=== PATIENT | female | born 1945 | race Caucasian/White ===

== ENCOUNTER → 2016-06-25 07:25 | Day surgery (SDC) | payer OTHER ==
[~2016-06-25 07:25] MED LIST: Acetaminophen TAB* 325 MG PO PRN; Buffered Lidocaine 1% SYRIN* 3 ML/SYR SYRINGE INTRADERM ONE; Cyclopentolate 1% OPTH.SOL* 2 ML BTL ONE; Flurbiprofen 0.03% OPTH.SOL* 2.5 ML BTL ONE; Lidocaine 1% MPF* 2 ML VIAL ONE; Lidocaine 2% EPI 1:200000 MPF* 20 ML VIAL ONE; Midazolam* 1 MG/ML 2 ML VIAL (2 MG) ONE; Neomycin/Polymy/Dex OPTH.SUSP* MAXITROL 0.1% 5 ML ONE; Phenylephrine 2.5% OPTH.SOL* 2 ML BTL ONE; Povidone Iodine 5% OPTH* 30 ML BTL ONE; Proparacaine 0.5% OPHTH.SOL* 15 ML BTL ONE; acetaZOLAMIDE TAB* 250 MG ONE
[2016-06-25 11:04] VITALS: BP 123/74
--- NOTE | 2016-06-25 22:18 | OP ---
DATE OF OPERATION: 06/25/16 - [facility] DATE OF : 47 SURGEON: Israel Bustillo MD PREOPERATIVE DIAGNOSIS: Cataract, left eye. POSTOPERATIVE DIAGNOSIS: Cataract, left eye. OPERATIVE PROCEDURE: Phacoemulsification left eye with IOL. DESCRIPTION OF PROCEDURE: The patient was brought to the operating room after being given 1/2% Alcaine with epinephrine drops in the preoperative area. The eye was prepped and draped in the usual sterile fashion. Sterile drape and eyelid speculum were placed. Again, topical 1/2% Alcaine with epinephrine was given. A paracentesis incision was made at the 3 o'clock position with the No.75 blade. Clear cornea incision 2.2 x 2.2-mm was created at the 6 o'clock position starting at the anterior limbus using the 2.2-mm keratome. The anterior chamber was irrigated with 0.4 mL of 1% non-preservative intracameral lidocaine and filled with DisCoVisc. A capsulorrhexis was completed using the cystotome and the Utrata forceps. Hydrodissection was performed with balanced salt solution. The lens nucleus was removed with the Phacoemulsification handpiece without incident. Cortex was removed with the irrigation-aspiration handpiece. The capsular bag was re-inflated using DisCoVisc and an [id number] 15 implant was inserted with the shooter. Because the pupil was small, a Malyugin ring was used to dilate the pupil prior to capsulorrhexis and removed after insertion of the lens. Indication for complex cataract surgery, iris abnormality requiring pupil dilation device. The irrigation-aspiration handpiece was used to remove all residual DisCoVisc. The eye was refilled with balanced salt solution and the wound checked and found to be watertight. Topical Maxitrol drops were given. [id number]/[facility] #: [id number] [facility]ITAL[facility]er[facility]
== END | disposition home or self-care (01) ==
LOC: OREAST 07:25
PROVIDERS: ATTEND Specialist
DX: H25.812 Combined forms of age-related cataract, left eye (principal); H21.562 Pupillary abnormality, left eye; H16.223 Keratoconjunctivitis sicca, not specified as Sjogren's, bilateral; N95.1 Menopausal and female climacteric states; I10 Essential (primary) hypertension; J44.9 Chronic obstructive pulmonary disease, unspecified
CPT/HCPCS: J2250; V2632

== ENCOUNTER → 2016-07-02 06:39 | Day surgery (SDC) | payer OTHER ==
[2016-07-02 09:00] VITALS: BP 144/73
--- NOTE | 2016-07-03 04:45 | OP ---
DATE OF OPERATION: 07/02/16 [facility] DATE OF : 47 SURGEON: Israel Bustillo MD PREOPERATIVE DIAGNOSIS: Cataract, right eye. POSTOPERATIVE DIAGNOSIS: Cataract, right eye. OPERATIVE PROCEDURE: Phacoemulsification, right eye with IOL. DESCRIPTION OF PROCEDURE: The patient was brought to the operating room after being given 1/2% Alcaine with epinephrine drops in the preoperative area. The eye was prepped and draped in the usual sterile fashion. Sterile drape and eyelid speculum were placed. Again, topical 1/2% Alcaine with epinephrine was given. A paracentesis incision was made at the 9 o'clock position with the No.75 blade. Clear cornea incision 2.2 x 2.2-mm was created at the 12 o'clock position starting at the anterior limbus using the 2.2-mm keratome. The anterior chamber was irrigated with 0.4 mL of 1% non-preservative intracameral lidocaine and filled with DisCoVisc. A capsulorrhexis was completed using the cystotome and the Utrata forceps. Hydrodissection was performed with balanced salt solution. The lens nucleus was removed with the Phacoemulsification handpiece without incident. Cortex was removed with the irrigation-aspiration handpiece. The capsular bag was re-inflated using DisCoVisc and an SN60WF 16.5 implant was inserted with the shooter. The irrigation-aspiration handpiece was used to remove all residual DisCoVisc. The eye was refilled with balanced salt solution and the wound checked and found to be watertight. Topical Maxitrol drops were given. [id number]/[facility] #: [id number] [facility]
== END | disposition home or self-care (01) ==
LOC: OREAST 06:39
PROVIDERS: ATTEND Specialist
DX: H25.811 Combined forms of age-related cataract, right eye (principal); H16.223 Keratoconjunctivitis sicca, not specified as Sjogren's, bilateral; R01.1 Cardiac murmur, unspecified; J44.9 Chronic obstructive pulmonary disease, unspecified; J45.909 Unspecified asthma, uncomplicated
CPT/HCPCS: J2250; V2632

== ENCOUNTER → 2019-01-26 07:18 | Day surgery (SDC) | payer MEDICARE ==
[~2019-01-26 07:18] MED LIST changes: -Acetaminophen TAB* 325 MG PO PRN; +Buffered Lidocaine 1% SYRIN* 1 ML/SYRINGE INTRADERM ONE; -Buffered Lidocaine 1% SYRIN* 3 ML/SYR SYRINGE INTRADERM ONE; -Cyclopentolate 1% OPTH.SOL* 2 ML BTL ONE; +Famotidine IV* 10 MG/ML 2 ML (20 mg) IV ONE; +Famotidine IV* 10 MG/ML 2 ML (20 mg) ONE; -Flurbiprofen 0.03% OPTH.SOL* 2.5 ML BTL ONE; +HYDROcodone/ACETAMIN 5-325 MG* 1 TAB PO PRN; +Lactated Ringers 1000 ML Bag* 1,000 ML IV SCH; -Lidocaine 1% MPF* 2 ML VIAL ONE; -Lidocaine 2% EPI 1:200000 MPF* 20 ML VIAL ONE; +Lidocaine 2% PF * 5 ML VIAL ONE; +Naloxone* 0.4 MG/ML 1 ML VIAL IV PRN; -Neomycin/Polymy/Dex OPTH.SUSP* MAXITROL 0.1% 5 ML ONE; +Ondansetron INJ* 2 MG/ML VIAL IV PRN; -Phenylephrine 2.5% OPTH.SOL* 2 ML BTL ONE; -Povidone Iodine 5% OPTH* 30 ML BTL ONE; -Proparacaine 0.5% OPHTH.SOL* 15 ML BTL ONE; +Propofol* 10 MG/ML 20 ML BTL ONE; -acetaZOLAMIDE TAB* 250 MG ONE; +fentaNYL* 50 MCG/ML 2 ML VIAL (100 MCG VIAL) IV PRN; +fentaNYL* 50 MCG/ML 2 ML VIAL (100 MCG VIAL) ONE
[2019-01-26 10:23] VITALS: BP 125/80
--- NOTE | 2019-01-26 13:32 | PRO ---
CC: Dr. Evans * PROCEDURE REPORT: DATE OF PROCEDURE: 01/26/19 PROCEDURE: Colonoscopy with jumbo biopsy polypectomy. REFERRING PROVIDER: Dr. Evans. INDICATION: The patient has a history of polyps. There was a cecal tubular adenoma and an ascending colon hyperplastic polyp removed in 2013. A note was made that this colonoscopy was challenging due to tortuosity in the sigmoid colon. The patient was seen in clinic. She reports remembering the procedure, which was very stressful for her. MEDICATIONS GIVEN: By Anesthesia. DESCRIPTION OF PROCEDURE: Full disclosure of risks was reviewed with the patient as detailed on the consent form. The patient was placed in the left lateral decubitus position and monitored with continuous pulse oximetry, capnography, interval blood pressure monitoring, and direct observation. After anorectal examination was performed, the pediatric colonoscope was inserted into the rectum and slowly advanced forward to the level of the terminal ileum. Complete views of the cecum were obtained including the medial wall between the IC valve and the appendiceal orifice. Photo documentation of landmarks obtained. Quality of the prep was good. Careful inspection was made as colonoscope was withdrawn. Retroflexion was performed in the rectum. Findings and interventions are described below. FINDINGS: Anorectal exam was unremarkable. Scope was inserted into the rectum and slowly advanced forward. Procedure was challenging due to significant tortuosity and acutely angled turns in the sigmoid colon. There was diverticulosis in the sigmoid colon. Slow careful maneuvering, suprapubic pressure, and water insufflation were useful in advancing the scope forward. There was some tortuosity to the right colon as well. Scope was able to reach the cecum. Within the cecum, the terminal ileum was intubated x5 cm. The ileal mucosa was normal in appearance. Scope was then withdrawn back into the cecum and then slowly throughout the length of the colon. In the sigmoid, there was a 3 to 4 mm polyp removed with jumbo biopsy forceps. No other polyps seen. Retroflexion in the rectum was unrevealing. Scope was then withdrawn from the patient. The patient tolerated the procedure well and was recovered in the GI recovery area. IMPRESSION: 1. Complete colonoscopy to terminal ileum. Challenging exam due to the patient 's anatomy and diverticulosis. 2. Single small sigmoid polyp removed as above. 3. Sigmoid diverticulosis. FOLLOWUP: 1. Await pathology. 2. Plan to discontinue colon cancer screening at this point as the patient had a non-advanced adenoma in 2013 and only a diminutive polyp today. Her anatomy makes her procedure quite challenging, which increases the risk of the procedure. 3. Recommend high-fiber diet given the presence of diverticulosis. Thank you very much for this referral. [id number]/[facility] #: [id number] [facility]
== END | disposition home or self-care (01) ==
LOC: OR 07:18
PROVIDERS: ATTEND Internal Medicine Gastroenterology
DX: Z09 Encounter for follow-up examination after completed treatment for conditions other than malignant neoplasm (principal); Z86.010 Personal history of colon polyps; D12.5 Benign neoplasm of sigmoid colon; K57.30 Diverticulosis of large intestine without perforation or abscess without bleeding; I10 Essential (primary) hypertension; E78.5 Hyperlipidemia, unspecified; J44.9 Chronic obstructive pulmonary disease, unspecified; M06.9 Rheumatoid arthritis, unspecified
CPT/HCPCS: 88305; J2250; J2704; J3010

== ENCOUNTER → 2019-02-04 07:19 | Day surgery (SDC) | payer MEDICARE ==
[~2019-02-04 07:19] MED LIST changes: +Acetaminophen TAB* 325 MG PO PRN; +Dexamethasone IV* 4 MG/ML 1 ML (4 MG) IV SLOW PU ONE; +Dexamethasone IV* 4 MG/ML 1 ML (4 MG) ONE; +DiMENhydriNATE IV* 50 MG/ML VIAL IV PUSH PRN; +Lidocaine 1% INJ* 10 MG/ML 30 ML SDV ONE; +Lidocaine 2% JELLY* 6 ML JELLY TOPICAL ONE; +Lidocaine 2% PF* 10 ML AMP ONE; -Ondansetron INJ* 2 MG/ML VIAL IV PRN; +Ondansetron INJ* 2 MG/ML VIAL ONE; +Succinylcholine* 20 MG/ML 10 ML VIAL ONE; +oxyCODONE TAB* 5 MG TAB PO PRN
[2019-02-04 10:41] LABS: Body Fluid Source OTH
[2019-02-04 11:37] VITALS: BP 151/80
--- NOTE | 2019-02-04 12:15 | PRO ---
BRONCHOSCOPY REPORT: DATE OF PROCEDURE: 02/04/19 PROCEDURE: Bronchoscopy. REASON FOR PROCEDURE: Reticulonodular infiltrate in upper lobes and right middle lobes in a lady with a history of rheumatoid arthritis, on Plaquenil. DESCRIPTION OF PROCEDURE: The patient was brought into the bronchoscopy suite. Informed consent was obtained. A time out was performed. The patient was intubated by anesthesia. The bronchoscope was advanced through the ET tube. The aftab was sharp. No endobronchial lesions. There was little bit of whitish mucus. Left upper lobe whitish mucosa unremarkable, no endobronchial lesions. Left lower lobe had some scant whitish mucus. No endobronchial lesions were evident. Mucosa was normal. Right upper lobe, 3 segments, no endobronchial lesions, normal mucus. Right middle lobe unremarkable. No endobronchial lesions. The mucosa is normal. Right lower lobe unremarkable, normal mucosa, normal secretions. Bronchoscope was advanced to the right middle lobe medial segment. We instilled 120 mL of saline. Return was about 55 mL of pink frothy return in the BAL. The BAL will be sent for cell count, differential, Gram stain culture, fungal cultures, DEONDRE prep to rule out nocardia , acid fast bacilli smear and culture. Also we are going to send it for T- cell subsets CD4, CD8 ratio and also it will be sent for cytology. The patient tolerated the procedure well. [id number]/[facility] #: [id number] [facility]
[2019-02-04 12:42] LABS: Body Fluid Mono 5 %; Body Fluid Other Cells 3
== END | disposition home or self-care (01) ==
LOC: OR 07:19
PROVIDERS: ATTEND Internal Medicine
DX: R91.8 Other nonspecific abnormal finding of lung field (principal); M06.9 Rheumatoid arthritis, unspecified; Z79.899 Other long term (current) drug therapy; E78.5 Hyperlipidemia, unspecified; I10 Essential (primary) hypertension; J44.9 Chronic obstructive pulmonary disease, unspecified
CPT/HCPCS: 36415; 87070; 87102; 87116; 87205; 87206; 88112; 89051; J0330; J1100; J2001; J2250; J2405; J2704; J3010